=== PATIENT | female | born 1990 | race Caucasian/White ===

== ENCOUNTER 2025-02-16 08:34 | Outpatient (CLI) | payer BC, SELFPAY ==
--- NOTE | ~2025-02-16 | CT_ITS ---
EXAM: CT brain wo con - 02/16/2025 8:35 CDT History: 35 years old Female with headaches, cyst of brain COMPARISON: None available. PROCEDURE: CT of the head without contrast. Axial, sagittal and coronal reformatted planes were michelle luated. Automatic exposure control was used for this study. FINDINGS: BRAIN PARENCHYMA: No acute hemorrhage. No mass effect or herniation. Griffin-white matter differentiatio n is maintained. Normal appearance of cortex. VENTRICLES/ EXTRA-AXIAL SPACES: No hydrocephalus or extra-axial fluid collection. EXTRACRANIAL STRUCTURES: No calvarial fracture. IMPRESSION: No evidence for acute intracranial hemorrhage or calvarial fracture. As clinically no intracranial ma ss seen. Reviewed, dictated and finalized at location A. IMPRESSION: No evidence for acute intracranial hemorrhage or calvarial fracture. As clinica lly no intracranial mass seen.
== END 2025-02-16 08:35 | disposition home or self-care (01) ==
LOC: MICIMG 08:35
DX: F41.9 Anxiety disorder, unspecified (principal); F32.A Depression, unspecified; G43.709 Chronic migraine without aura, not intractable, without status migrainosus; G93.0 Cerebral cysts
CPT/HCPCS: 70450

== ENCOUNTER 2025-04-21 09:06 | Outpatient (CLI) | payer BC, SELFPAY ==
--- NOTE | ~2025-04-21 | MR_ITS ---
EXAMINATION: MR lumbar spine wo con DATE: 04/21/2025 09:50 INDICATION: Lumbar radiculopathy. TECHNIQUE: Magnetic resonance imaging (MRI) of the lumbar spine was performed without intravenous contrast. Sequences included sagittal T2-weighted FSE, sagittal T2-weighted FS FSE, sagittal T1-weighted FSE, and axial T2-weighted FSE. COMPARISON: None FINDINGS: Alignment is normal. There is mild chronic anterior wedging of T11 and T12 vertebral bodies. There is mildly decreased disc height at L4-L5 and severely decreased disc height at L5-S1. The distal spinal cord signal intensity is normal. The conus medullaris is at L1. The following disc levels are specifically discussed: L1-L2: The disc does not extend beyond the endplate margin. There is mild right and moderate left facet joint osteoarthritis. There is no neural foraminal stenosis. There is no central canal stenosis. L2-L3: The disc does not extend beyond the endplate margin. There is mild bilateral facet joint osteoarthritis. There is no neural foraminal stenosis. There is no central canal stenosis. L3-L4: The disc does not extend beyond the endplate margin. There is mild bilateral facet joint osteoarthritis. There is no neural foraminal stenosis. There is no central canal stenosis. L4-L5: The disc is bulging and has an annular fissure. There is mild bilateral facet joint osteoarthritis. There is mild bilateral neural foraminal stenosis. There is mild central canal stenosis. L5-S1: The disc is bulging and has an annular fissure. There is mild bilateral facet joint osteoarthritis. There is mild bilateral neural foraminal stenosis. There is mild central canal stenosis. IMPRESSION: 1. Moderate lower lumbar spondylosis. Reviewed, dictated and finalized at location E.
== END 2025-04-21 09:07 | disposition home or self-care (01) ==
DX: M47.816 Spondylosis without myelopathy or radiculopathy, lumbar region (principal)
CPT/HCPCS: 72148